=== PATIENT | female | born 1985 | race Caucasian/White ===

== ENCOUNTER 2016-12-26 09:01 | Emergency (ER) | payer OTHER ==
[~2016-12-26] VITALS: Ht 152.4 cm; Wt 90.0 kg
[~2016-12-26 09:01] MED LIST: FLUO20TA20 PO; GABA300C3 PO; SERO200T PO; TRAZ50TA4 PO
[2016-12-26 09:02] VITALS: BP 142/91; PULSE 114; RESP 18; TEMP 98; O2SAT 98
[2016-12-26 10:27] LABS: AUTOMATED NEUTROPHIL # 11.6 TH/MM3 (1.8-7.7); BASOPHIL # 0.1 TH/MM3 (0-0.2); BASOPHIL % 0.5 % (0.0-2.0); EOSINOPHIL # 0.1 TH/MM3 (0-0.4); EOSINOPHIL % 0.3 % (0.0-4.0); HEMATOCRIT 38.4 % (35.0-46.0); HEMO FLAGS DIFF FINAL; LYMPH % 17.7 % (9.0-44.0); LYMPHOCYTE # 2.7 TH/MM3 (1.0-4.8); MEAN CELL VOLUME 91.7 FL (80.0-100.0); MEAN CORPUSCULAR HEMOGLOBIN 31.3 PG (27.0-34.0); MEAN CORPUSCULAR HGB CONC 34.2 % (32.0-36.0); MONO % 4.4 % (0.0-8.0); NEUT % 77.1 % (16.0-70.0); PLATELET COUNT 301 TH/MM3 (150-450); RED BLOOD COUNT 4.18 MIL/MM3 (4.00-5.30); RED CELL DISTRIBUTION WIDTH 13.5 % (11.6-17.2); WHITE BLOOD COUNT 15.1 TH/MM3 (4.0-11.0)
[2016-12-26] MEDS ORDERED: LORazepam 1 MG TAB PO ONE (10:45)
[2016-12-26 10:49] LABS: ALT (GPT) 33 U/L (10-53); ANION GAP 13 MEQ/L (5-15); AST (GOT) 18 U/L (15-37); BICARBONATE 23.3 MEQ/L (21.0-32.0); BLOOD UREA NITROGEN 8 MG/DL (7-18); CHLORIDE 101 MEQ/L (98-107); GLOMERULAR FILTRATION RATE 71 ML/MIN (>89); POTASSIUM 3.6 MEQ/L (3.5-5.1); SODIUM (NA) 137 MEQ/L (136-145)
[2016-12-26 10:51] LABS: ALKALINE PHOSPHATASE 90 U/L (45-117); TOTAL BILIRUBIN ADULT 0.4 MG/DL (0.2-1.0)
[2016-12-26 11:05] LABS: AMPHETAMINE, URINE POS (NEG); BARBITURATES, URINE NEG (NEG); COCAINE, URINE POS (NEG)
--- NOTE | 2016-12-26 11:14 | PD ---
HPI Chief Complaint: Psychiatric Symptoms Time Seen by Provider: 09:46 Travel History International Travel<30 days: No Contact w/Intl Traveler<30days: No Traveled to known affect area: No History of Present Illness HPI Set 31-year-old woman presents to the emergency department complaining of suicidality. She states that she left detox yesterday after being there 5 days for IV polysubstance abuse with her when cocaine and methamphetamine. She states she used yesterday after getting out. Should she had a negative detox because she required 2 to go back to her sober living house. She is now homeless. She states that she is going to kill her self. She denies any recent illness or injury. No other complaints. History Past Medical History Narrative Medical Active IV drug use Tetanus Vaccination: < 5 Years Influenza Vaccination: No LMP: 12/2016 Social History Alcohol Use: No Tobacco Use: Yes (1 PPD) Allergies-Medications (Allergen,Severity, Reaction): Coded Allergies: Effexor (Verified Allergy, Severe, 12/26/16) Reported Meds & Prescriptions Reported Meds & Active Scripts Active Review of Systems Except as stated in HPI: all other systems reviewed are Neg Physical Exam Narrative GENERAL: 31-year-old woman, tearful, nontoxic. SKIN: Focused skin assessment warm/dry. HEAD: Atraumatic. Normocephalic. EYES: Pupils equal and round. No scleral icterus. No injection or drainage. ENT: No nasal bleeding or discharge. Mucous membranes pink and moist. NECK: Trachea midline. No JVD. CARDIOVASCULAR: Regular rate and rhythm. No murmur appreciated. RESPIRATORY: No accessory muscle use. Clear to auscultation. Breath sounds equal bilaterally. GASTROINTESTINAL: Abdomen soft, non-tender, nondistended. Hepatic and splenic margins not palpable. MUSCULOSKELETAL: No obvious deformities. No edema. NEUROLOGICAL: Awake and alert. No obvious cranial nerve deficits. Motor grossly within normal limits. Normal speech. PSYCHIATRIC: Tearful and sad. Expressing SI. Data Data Last Documented VS Vital Signs Date Time Temp Pulse Resp B/P Pulse Ox O2 Delivery O2 Flow Rate FiO2 12/26/16 09:02 98.0 114 18 142/91 98 Orders Complete Blood Count With Diff (12/26/16 09:24) Comprehensive Metabolic Panel (12/26/16 09:24) Ed Urine Pregnancytest Poc (12/26/16 09:24) Psych Screen (12/26/16 09:24) Drug Screen, Random Urine (12/26/16 09:24) Lorazepam (Ativan) (12/26/16 10:45) Diet Regular Basic (12/26/16 Lunch) Labs Laboratory Tests Test 12/26/16 10:10 White Blood Count 15.1 TH/MM3 Red Blood Count 4.18 MIL/MM3 Hemoglobin 13.1 GM/DL Hematocrit 38.4 % Mean Corpuscular Volume 91.7 FL Mean Corpuscular Hemoglobin 31.3 PG Mean Corpuscular Hemoglobin 34.2 % Concent Red Cell Distribution Width 13.5 % Platelet Count 301 TH/MM3 Mean Platelet Volume 8.8 FL Neutrophils (%) (Auto) 77.1 % Lymphocytes (%) (Auto) 17.7 % Monocytes (%) (Auto) 4.4 % Eosinophils (%) (Auto) 0.3 % Basophils (%) (Auto) 0.5 % Neutrophils # (Auto) 11.6 TH/MM3 Lymphocytes # (Auto) 2.7 TH/MM3 Monocytes # (Auto) 0.7 TH/MM3 Eosinophils # (Auto) 0.1 TH/MM3 Basophils # (Auto) 0.1 TH/MM3 CBC Comment DIFF FINAL Differential Comment Sodium Level 137 MEQ/L Potassium Level 3.6 MEQ/L Chloride Level 101 MEQ/L Carbon Dioxide Level 23.3 MEQ/L Anion Gap 13 MEQ/L Blood Urea Nitrogen 8 MG/DL Creatinine 0.93 MG/DL Estimat Glomerular Filtration 71 ML/MIN Rate Random Glucose 85 MG/DL Calcium Level 9.1 MG/DL Total Bilirubin 0.4 MG/DL Aspartate Amino Transf 18 U/L (AST/SGOT) Alanine Aminotransferase 33 U/L (ALT/SGPT) Alkaline Phosphatase 90 U/L Total Protein 8.4 GM/DL Albumin 3.6 GM/DL [facility] Medical Decision Making Medical Screen Exam Complete: Yes Emergency Medical Condition: Yes Interpretation(s) LABS: CBC remarkable for mild leukocytosis. CMP unremarkable. Point of care hCG negative Differential Diagnosis Adjustment reaction, substance induced mood disorder, depression, malingering, other Narrative Course Medical decision making 31-year-old woman presents to the emergency department complaining of suicidality in the setting of active IV drug use and was passing. She looks otherwise well. No somatic complaints. Patient's medically clear for psychiatric evaluation. Deshawn Bergeron MD Dec 26, 2016 11:13
--- NOTE | 2016-12-26 15:13 | PD ---
History of Present Illness Chief Complaint: Psychiatric Symptoms Time Seen by Provider: 14:15 Travel History International Travel<30 Days: No Contact w/Intl Traveler<30days: No Known affected area: No Legal Status Legal Status: Dietrich Act Dietrich Act Signed By: History of Present Illness: This is a 31-year-old female who is here under a Dietrich act for threatening to kill herself. Patient was recently released from detox, yesterday and immediately went out and began using alcohol and drugs. She states she wanted to get into the sober living house but now must return to detox in order to get in there. She reports being "tired of this shift" and does not wish to go back to detox. She repeatedly threatens to kill herself if this physician does not admit her to the hospital. This physician feels it is counter therapeutic to given to the patient's manipulations, despite the possibility that she may act out in a dangerous and self-injurious way. This physician feels the patient should return to detox so that she can get into the sober living house. Patient was informed of this recommendation. This physician acknowledges the patient may continue to act out if she is not given her way. This acting out may be dangerous to self or others. However the patient is a competent adult and capable of making appropriate decisions. PFSH Past Medical History Bipolar Disorder: Yes Anxiety: Yes Depression: Yes Diminished Hearing: No Psychiatric: Yes (SUICIDAL IDEATION ) Immunizations Current: No Tetanus Vaccination: < 5 Years Influenza Vaccination: No ?: Not LMP: 12/2016 Past Surgical History Cholecystectomy: Yes Other Surgery: Yes (LEFT OOPHORECTOMY) Psychiatric History Psychiatric History Hx Psychiatric Treatment: CURRENLY BEING TREATED FOR DEPRESSION BY NISREEN HAYDEN AT [facility]. The patient is treatment Bipolar depression. She is treated with Prozac, Seroquel, Trazodone, Neurontin, and Metformin. Has tried to kill self by OD and cut wrists. History of Inpatient Treatment: Yes Social History Hx Alcohol Use: No Hx Tobacco Use: Yes (1 PPD) Hx Substance Use: Yes (metamphenamine, coccaine, heroine) Substance Use Type: Alcohol, Cocaine Other Substances Used: SOBER FROM DRUGS FOR 78 DAYS. Says that she has used every drug. Hx of Substance Use Treatment: Yes Allergies-Medications (Allergen,Severity, Reaction): Coded Allergies: Effexor (Verified Allergy, Severe, 12/26/16) Reported Meds & Prescriptions Reported Meds & Active Scripts Active Review of Systems ROS Limitations: Clinical Condition Exam Exam Limitations: Clinical Condition Alert: Yes [place]: Person, Place, Date, Situation Mood: Angry Affect: Other Speech: Clear Eye Contact: Indirect Memory Intact: Immediate, Recent, Remote Suicidal: Ideation Insight/Judgement Adequate except when it comes to drug and alcohol abuse MDM Medical Decision Making Medical Record Reviewed: Yes Assessment/Plan Patient's Dietrich act is being lifted and she is being discharged. She was encouraged to return to the [facility] detox house and then to sober living house. This physician feels it is inappropriate to give it to the patient's manipulations, despite the risk of her acting out and causing her self-harm. Orders Complete Blood Count With Diff (12/26/16 09:24) Comprehensive Metabolic Panel (12/26/16 09:24) Ed Urine Pregnancytest Poc (12/26/16 09:24) Psych Screen (12/26/16 09:24) Drug Screen, Random Urine (12/26/16 09:24) Lorazepam (Ativan) (12/26/16 10:45) Diet Regular Basic (12/26/16 Lunch) Results Vital Signs Date Time Temp Pulse Resp B/P Pulse Ox O2 Delivery O2 Flow Rate FiO2 12/26/16 09:02 98.0 114 18 142/91 98 Laboratory Tests Test 12/26/16 12/26/16 10:05 10:10 Urine Opiates Screen NEG Urine Barbiturates Screen NEG Urine Amphetamines Screen POS Urine Benzodiazepines Screen POS Urine Cocaine Screen POS Urine Cannabinoids Screen NEG White Blood Count 15.1 Red Blood Count 4.18 Hemoglobin 13.1 Hematocrit 38.4 Mean Corpuscular Volume 91.7 Mean Corpuscular Hemoglobin 31.3 Mean Corpuscular Hemoglobin 34.2 Concent Red Cell Distribution Width 13.5 Platelet Count 301 Mean Platelet Volume 8.8 Neutrophils (%) (Auto) 77.1 Lymphocytes (%) (Auto) 17.7 Monocytes (%) (Auto) 4.4 Eosinophils (%) (Auto) 0.3 Basophils (%) (Auto) 0.5 Neutrophils # (Auto) 11.6 Lymphocytes # (Auto) 2.7 Monocytes # (Auto) 0.7 Eosinophils # (Auto) 0.1 Basophils # (Auto) 0.1 CBC Comment DIFF FINAL Differential Comment Sodium Level 137 Potassium Level 3.6 Chloride Level 101 Carbon Dioxide Level 23.3 Anion Gap 13 Blood Urea Nitrogen 8 Creatinine 0.93 Estimat Glomerular Filtration 71 Rate Random Glucose 85 Calcium Level 9.1 Total Bilirubin 0.4 Aspartate Amino Transf 18 (AST/SGOT) Alanine Aminotransferase 33 (ALT/SGPT) Alkaline Phosphatase 90 Total Protein 8.4 Albumin 3.6 Diagnosis Primary Impression: Drug-induced mood disorder Departure Forms: Tests/Procedures Patient Instructions: General Instructions Disposition: 01 DISCHARGE HOME Condition: Stable Joe Appiah MD Dec 26, 2016 15:13
== END 2016-12-26 14:37 | disposition home or self-care (01) ==
LOC: NEPD 09:01 → NEPB 14:37
DX: F15.14 Other stimulant abuse with stimulant-induced mood disorder (principal); F14.90 Cocaine use, unspecified, uncomplicated; F13.14 Sedative, hypnotic or anxiolytic abuse with sedative, hypnotic or anxiolytic-induced mood disorder; F17.210 Nicotine dependence, cigarettes, uncomplicated; F31.9 Bipolar disorder, unspecified
CPT/HCPCS: 80053; 80307; 84703; 85025; 99284

== ENCOUNTER 2017-01-01 10:56 | Emergency (ER) | payer OTHER ==
[~2017-01-01] VITALS: Ht 152.4 cm; Wt 86.0 kg
[2017-01-01 11:15] VITALS: BP 140/82; PULSE 73; RESP 18; TEMP 98.9; O2SAT 97
--- NOTE | 2017-01-01 11:27 | PD ---
HPI Chief Complaint: Psychiatric Symptoms Time Seen by Provider: 11:21 Travel History International Travel<30 days: No Contact w/Intl Traveler<30days: No Traveled to known affect area: No History of Present Illness HPI 31-year-old female is brought to the emergency department under Dietrich act for suicidal ideations. Per the Dietrich act documentation the patient attempted to kill herself by cutting her left forearm with a razor blade. There was a suicide note found next to her at her home stating that she did not want to live anymore. The police were called by friends who checked on the patient and found her with a suicide note and then placed her under Dietrich act. The patient is currently agitated and uncooperative. She is stating that she did not cut herself that this "was an accident" and she does not recall exactly how it happened. She is denying suicidal or homicidal ideations. She denies any medical complaints. Denies any numbness or tingling, weakness, fever, chills, nausea, vomiting, chest pain, shortness of breath, abdominal pain. No other complaints. PFSH Past Medical History Bipolar Disorder: Yes Anxiety: Yes Depression: Yes Diminished Hearing: No Psychiatric: Yes (SUICIDAL IDEATION ) Immunizations Current: No Past Surgical History Cholecystectomy: Yes Other Surgery: Yes (LEFT OOPHORECTOMY) Social History Alcohol Use: No Tobacco Use: Yes (1 PPD) Substance Use: Yes (metamphenamine, coccaine, heroine) Allergies-Medications (Allergen,Severity, Reaction): Coded Allergies: Effexor (Verified Allergy, Severe, 01/01/17) Reported Meds & Prescriptions Reported Meds & Active Scripts Active Review of Systems Except as stated in HPI: all other systems reviewed are Neg Physical Exam Narrative GENERAL: Well-nourished and well-developed pleasant patient in no acute distress who is nontoxic appearing. SKIN: Warm and dry. 8 cm linear laceration to the volar aspect of left forearm , whitest in the center of the laceration about a centimeter wide. This is not deep, I'm able to see a bloodless view of the base of the laceration and there is no foreign body visualized. HEAD: Normocephalic and atraumatic. EYES: No injection, drainage, or hyphema noted. PERRLA. EOMI. ENT: No nasal drainage noted. Oropharynx is clear. NECK: Supple and the trachea is midline. CARDIOVASCULAR: Regular rate and rhythm. RESPIRATORY: Breath sounds are equal bilaterally with no accessory muscle use, wheezing, rhonchi, or crackles. GASTROINTESTINAL: Abdomen is soft, non-tender, and nondistended. MUSCULOSKELETAL: No obvious deformities, swelling, cyanosis, or ecchymosis is present throughout the upper and lower extremities. Patient has full range of motion without any signs of neurovascular compromise. NEUROLOGICAL: Awake, alert, and oriented. Normal speech and gait. Cranial nerves are grossly intact. Data Data Last Documented VS Vital Signs Date Time Temp Pulse Resp B/P Pulse Ox O2 Delivery O2 Flow Rate FiO2 01/01/17 11:18 73 01/01/17 11:15 98.9 18 140/82 97 Orders Complete Blood Count With Diff (01/01/17 11:16) Comprehensive Metabolic Panel (01/01/17 11:16) Ed Urine Pregnancytest Poc (01/01/17 11:16) Psych Screen (01/01/17 11:16) Drug Screen, Random Urine (01/01/17 11:16) Alcohol (Ethanol) (01/01/17 11:16) Salicylates (Aspirin) (01/01/17 11:16) Tylenol (Acetaminophen) (01/01/17 11:16) Lidocai-Epi 1%-1:100,000 Inj (Xylocaine- (01/01/17 11:30) Labs Laboratory Tests Test 01/01/17 12:45 White Blood Count 10.1 TH/MM3 Red Blood Count 3.74 MIL/MM3 Hemoglobin 11.3 GM/DL Hematocrit 34.3 % Mean Corpuscular Volume 91.9 FL Mean Corpuscular Hemoglobin 30.4 PG Mean Corpuscular Hemoglobin 33.0 % Concent Red Cell Distribution Width 13.5 % Platelet Count 234 TH/MM3 Mean Platelet Volume 9.0 FL Neutrophils (%) (Auto) 60.9 % Lymphocytes (%) (Auto) 30.1 % Monocytes (%) (Auto) 6.8 % Eosinophils (%) (Auto) 1.5 % Basophils (%) (Auto) 0.7 % Neutrophils # (Auto) 6.1 TH/MM3 Lymphocytes # (Auto) 3.0 TH/MM3 Monocytes # (Auto) 0.7 TH/MM3 Eosinophils # (Auto) 0.1 TH/MM3 Basophils # (Auto) 0.1 TH/MM3 CBC Comment DIFF FINAL Differential Comment Sodium Level 139 MEQ/L Potassium Level 3.7 MEQ/L Chloride Level 107 MEQ/L Carbon Dioxide Level 25.2 MEQ/L Anion Gap 7 MEQ/L Blood Urea Nitrogen 7 MG/DL Creatinine 0.81 MG/DL Estimat Glomerular Filtration 83 ML/MIN Rate Random Glucose 109 MG/DL Calcium Level 8.6 MG/DL Total Bilirubin 0.7 MG/DL Aspartate Amino Transf 82 U/L (AST/SGOT) Alanine Aminotransferase 130 U/L (ALT/SGPT) Alkaline Phosphatase 124 U/L Total Protein 7.2 GM/DL Albumin 3.2 GM/DL Salicylates Level LESS THAN 1.7 MG/DL Acetaminophen Level LESS THAN 2.0 MCG/ML Ethyl Alcohol Level LESS THAN 3 MG/DL MDM Medical Decision Making Medical Screen Exam Complete: Yes Emergency Medical Condition: Yes Differential Diagnosis Differential: Depression versus adjustment reaction versus anxiety versus PTSD versus psychosis NOS versus mood disorder NOS versus substance induced mood disorder versus ODD versus adjustment reaction versus schizophrenia versus bipolar disorder versus schizoaffective versus electrolyte abnormality Narrative Course Patient presents under a Dietrich act for attempting to kill herself by lacerating her left forearm. She does have a laceration to the left forearm that is superficial however will require suture repair. Left upper extremity is neurovascularly intact. She is reporting her tetanus vaccination is up-to- date. Vital signs are within normal limits. Psych screen has been ordered. CBC shows mild anemia with a hemoglobin of 11.3, hematocrit 34.3. CMP shows elevated LFTs, likely secondary to substance abuse, patient has no abdominal pain. Tylenol and salicylate levels are within normal limits. EtOH is less than 3. The patient is medically cleared for psychiatric evaluation and disposition. Procedures Procedure Narrative LACERATION LOCATION: Left forearm volar aspect LENGTH: 10 cm NUMBER OF STITCHES/EDWARDO: 19 sutures REPAIR: The area of the laceration was prepped with Betadine and sterilely draped. The laceration was infiltrated with 1% lidocaine with epinephrine. The wound was copiously irrigated and explored without evidence of foreign body , tendon injury or neurovascular injury. The wound was closed using 4. 0 Ethilon. This was a single layer repair. Antibiotic ointment and a sterile dressing was applied. The patient was advised to keep the dressing clean and dry. Patient tolerated the procedure well. Diagnosis Primary Impression: Self-inflicted laceration of wrist Qualified Code: S61.512A - Self-inflicted laceration of wrist, left, initial encounter Additional Impression: Suicidal behavior Qualified Code: T14.91 - Suicidal behavior with attempted self-injury Additional Instructions: Keep wound clean and dry. Wash gently with soap and water. Apply topical antibiotic ointment twice daily. Have sutures removed in 7 days. Follow-up with your Primary Care Physician. Return to the ED for any acute worsening of symptoms. Ana Maria Forrester Jan 01, 2017 11:27
[2017-01-01] MEDS ORDERED: LIDOCAINE 1%/EPINEPHrine 1:100,000 SOLN 20 ML VIAL INFIL ONE (11:30)
[2017-01-01 13:17] LABS: AUTOMATED NEUTROPHIL # 6.1 TH/MM3 (1.8-7.7); BASOPHIL # 0.1 TH/MM3 (0-0.2); BASOPHIL % 0.7 % (0.0-2.0); EOSINOPHIL # 0.1 TH/MM3 (0-0.4); EOSINOPHIL % 1.5 % (0.0-4.0); HEMATOCRIT 34.3 % (35.0-46.0); HEMO FLAGS DIFF FINAL; LYMPH % 30.1 % (9.0-44.0); MEAN CELL VOLUME 91.9 FL (80.0-100.0); MEAN CORPUSCULAR HEMOGLOBIN 30.4 PG (27.0-34.0); MONO % 6.8 % (0.0-8.0); NEUT % 60.9 % (16.0-70.0); PLATELET COUNT 234 TH/MM3 (150-450); RED BLOOD COUNT 3.74 MIL/MM3 (4.00-5.30); RED CELL DISTRIBUTION WIDTH 13.5 % (11.6-17.2); WHITE BLOOD COUNT 10.1 TH/MM3 (4.0-11.0)
[2017-01-01 13:21] LABS: ALT (GPT) 130 U/L (10-53); ANION GAP 7 MEQ/L (5-15); AST (GOT) 82 U/L (15-37); BICARBONATE 25.2 MEQ/L (21.0-32.0); BLOOD UREA NITROGEN 7 MG/DL (7-18); CHLORIDE 107 MEQ/L (98-107); GLOMERULAR FILTRATION RATE 83 ML/MIN (>89); POTASSIUM 3.7 MEQ/L (3.5-5.1); SODIUM (NA) 139 MEQ/L (136-145)
[2017-01-01 13:23] LABS: ACETAMINOPHEN LESS THAN 2.0 MCG/ML (10.0-30.0); ALKALINE PHOSPHATASE 124 U/L (45-117); TOTAL BILIRUBIN ADULT 0.7 MG/DL (0.2-1.0)
[2017-01-01 14:25] VITALS: BP 147/78; PULSE 86; RESP 18; TEMP 98.5; O2SAT 100
[2017-01-01 16:32] LABS: AMPHETAMINE, URINE POS (NEG); BARBITURATES, URINE NEG (NEG); COCAINE, URINE POS (NEG)
[2017-01-01 22:31] VITALS: BP 129/65; PULSE 73; RESP 16; O2SAT 99
[2017-01-02 02:07] VITALS: BP 102/66; PULSE 71; RESP 18
[2017-01-02 06:10] VITALS: BP 128/61; PULSE 75; RESP 18
[2017-01-02] MEDS ORDERED: LORazepam 2 MG TAB PO PRN (08:30)
[2017-01-02] MEDS ORDERED: LORazepam 2 MG/ML VIAL IV PUSH PRN ×4 (08:30)
[2017-01-02] MEDS ORDERED: LORazepam 1 MG TAB PO PRN (08:30)
[2017-01-02] MEDS ORDERED: FLUMAZENIL 0.5 MG/5 ML VIAL IV PUSH PRN (08:30)
[2017-01-02 10:44] VITALS: BP 140/73; PULSE 89; RESP 18; O2SAT 96
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
== END 2017-01-02 16:14 ==
LOC: NEPD 10:56 → NEPJ 01-02 16:14
DX: S61.512A Laceration without foreign body of left wrist, initial encounter (principal); T14.91 Suicide attempt; F43.25 Adjustment disorder with mixed disturbance of emotions and conduct; X78.8XXA Intentional self-harm by other sharp object, initial encounter; Y92.009 Unspecified place in unspecified non-institutional (private) residence as the place of occurrence of the external cause; F17.210 Nicotine dependence, cigarettes, uncomplicated; F19.10 Other psychoactive substance abuse, uncomplicated; F15.90 Other stimulant use, unspecified, uncomplicated; F14.90 Cocaine use, unspecified, uncomplicated; F11.90 Opioid use, unspecified, uncomplicated; Z59.0 Homelessness
CPT/HCPCS: 12004; 80053; 80307; 84703; 85025

== ENCOUNTER 2017-08-30 12:44 | Emergency (ER) | payer OTHER ==
[~2017-08-30] VITALS: Ht 152.4 cm; Wt 81.5 kg
[2017-08-30 12:52] VITALS: BP 141/86; PULSE 109; RESP 19; TEMP 99.1; O2SAT 98
[2017-08-30 12:56] VITALS: BP 141/86; PULSE 105; RESP 20; TEMP 99.1; O2SAT 100
[2017-08-30] MEDS ORDERED: GABA300C5 PO (12:58)
[2017-08-30] MEDS ORDERED: TRAZ100T10 PO (12:58)
[2017-08-30] MEDS ORDERED: WELLTAB39 PO (12:58)
[2017-08-30] MEDS ORDERED: SODIUM CHLOR 0.9% 1000 ML INJ 1,000 ML IV ONE (13:02)
[2017-08-30 13:07] VITALS: BP 140/92; PULSE 105; RESP 19; TEMP 99.1; O2SAT 100
[2017-08-30] MEDS ORDERED: SODIUM CHLORIDE 0.9% FLUSH 10 ML FLUSH IVF PRN (13:15)
--- NOTE | 2017-08-30 14:43 | RADRPT ---
EXAM DATE/TIME: 08/30/2017 14:06 [facility] COMPARISON: No previous studies available for comparison. INDICATIONS : Seizure today,headach weakness. RADIATION DOSE: 56.35 CTDIvol (mGy) MEDICAL HISTORY : None SURGICAL HISTORY : Cholecystectomy. LT oophorectomy ENCOUNTER: Initial ACUITY: 2 days PAIN SCALE: 5/10 LOCATION: cranial TECHNIQUE: Multiple contiguous axial images were obtained of the head. Using automated exposure control and adj ustment of the mA and/or kV according to patient size, radiation dose was kept as low as reasonably a chievable to obtain optimal diagnostic quality images. DICOM format image data is available electro nically for review and comparison. FINDINGS: CEREBRUM: The ventricles are normal for age. No evidence of midline shift, mass lesion, hemorrhage or acute in farction. No extra-axial fluid collections are seen. POSTERIOR FOSSA: The cerebellum and brainstem are intact. The 4th ventricle is midline. The cerebellopontine angle i s unremarkable. EXTRACRANIAL: The visualized portion of the orbits is intact. SKULL: The calvaria is intact. No evidence of skull fracture. CONCLUSION: Normal examination. Abhinav Garner MD on August 30, 2017 at 14:41 Board Certified Radiologist. This report was verified electronically.
--- NOTE | 2017-08-30 14:49 | PD ---
HPI Chief Complaint: Seizure Time Seen by Provider: 12:47 Travel History International Travel<30 days: No Contact w/Intl Traveler<30days: No Traveled to known affect area: No History of Present Illness HPI This is a 32-year-old female with a history of seizure disorder, psychiatric disorder, who presents today after having a seizure while at work. The patient states that she last had a seizure in January of last year. She states she is on Wellbutrin and has been told that this can lower the seizure threshold. She states that she has no point with her psychiatrist tomorrow to take her off the Wellbutrin. She reports mild frontal headache. She denies any toxic ingestion. She is currently not taking any seizure medications at this time. She denies any tongue biting. She denies any urinary continence. There are no other complaints time my examination. PFSH Past Medical History Bipolar Disorder: Yes Anxiety: Yes Depression: Yes Diminished Hearing: No Psychiatric: Yes (SUICIDAL IDEATION ) Reproductive: Yes (PCOS) Immunizations Current: No Influenza Vaccination: No ?: Not LMP: 08/18/17 Past Surgical History Cholecystectomy: Yes Other Surgery: Yes (LEFT OOPHORECTOMY) Social History Alcohol Use: No Tobacco Use: No Substance Use: No ( cocaine, heroin) Allergies-Medications (Allergen,Severity, Reaction): Coded Allergies: venlafaxine (Unverified Allergy, Severe, 08/30/17) egg (Verified Allergy, Unknown, 08/30/17) shellfish derived (Verified Allergy, Unknown, 08/30/17) Reported Meds & Prescriptions Reported Meds & Active Scripts Active Reported Wellbutrin Xl 24 HR (Bupropion HCl) 300 Mg Tab 300 Mg PO DAILY Trazodone (Trazodone HCl) 100 Mg Tablet 100 Mg PO HS Gabapentin 300 Mg Cap 300 Mg PO TID Review of Systems Except as stated in HPI: all other systems reviewed are Neg General / Constitutional: No: Fever, Chills Eyes: No: Blurred Vision, Photophobia HENT: Positive: Headaches, No: Lightheadedness (mild bifrontal), Neck Pain Cardiovascular: No: Chest Pain or Discomfort, Palpitations Respiratory: No: Cough, Shortness of Breath Gastrointestinal: No: Nausea, Vomiting Genitourinary: No: Incontinence Musculoskeletal: No: Weakness, Pain Neurologic: Positive: Seizures, No: Weakness, Headache Psychiatric: No: Suicidal Ideations, Substance Abuse, Homicidal Ideation Physical Exam Narrative GENERAL: Well developed well-nourished female in no acute distress. SKIN: Focused skin assessment warm/dry. HEAD: Atraumatic. Normocephalic. EYES: Pupils equal and round. No scleral icterus. No injection or drainage. ENT: No nasal bleeding or discharge. Mucous membranes pink and moist. NECK: Trachea midline. Supple. CARDIOVASCULAR: Regular rate and rhythm. No murmur appreciated. RESPIRATORY: No accessory muscle use. Clear to auscultation. Breath sounds equal bilaterally. GASTROINTESTINAL: Abdomen soft, non-tender, nondistended. MUSCULOSKELETAL: No obvious deformities. No clubbing. No cyanosis. No edema. NEUROLOGICAL: Awake and alert. No obvious cranial nerve deficits. Motor grossly within normal limits. Normal speech. Data Data Last Documented VS Vital Signs Date Time Temp Pulse Resp B/P (MAP) Pulse Ox O2 Delivery O2 Flow Rate FiO2 08/30/17 17:12 80 17 122/80 (94) 100 Room Air 08/30/17 13:07 99.1 Orders Orders Basic Metabolic Panel (Bmp) (08/30/17 13:02) Ct Brain W/O Iv Contrast(Rout) (08/30/17 ) Blood Glucose (08/30/17 13:02) Ecg Monitoring (08/30/17 13:02) Iv Access Insert/Monitor (08/30/17 13:02) Oximetry (08/30/17 13:02) Sodium Chlor 0.9% 1000 Ml Inj (Ns 1000 M (08/30/17 13:02) Sodium Chloride 0.9% Flush (Ns Flush) (08/30/17 13:15) Ketorolac Inj (Toradol Inj) (08/30/17 17:00) Mandatory Outpatient Referral (08/30/17 16:59) Labs Laboratory Tests Test 08/30/17 15:42 Blood Urea Nitrogen 5 MG/DL Creatinine 0.90 MG/DL Random Glucose 100 MG/DL Calcium Level 8.3 MG/DL Sodium Level 140 MEQ/L Potassium Level 3.7 MEQ/L Chloride Level 108 MEQ/L Carbon Dioxide Level 25.7 MEQ/L Anion Gap 6 MEQ/L Estimat Glomerular Filtration Rate 73 ML/MIN MDM Medical Decision Making Medical Screen Exam Complete: Yes Emergency Medical Condition: Yes Differential Diagnosis Breakthrough seizure versus metabolic derangement versus intracranial abnormality Narrative Course 32-year-old female history of seizure disorder, presents after having a witnessed seizure. The patient reported mild frontal headache when she arrived. She was awake alert and appropriate. Elect lites are within normal limits. She had a breakthrough seizure in January. She is currently taking Wellbutrin and will have it switched tomorrow when she sees her psychologist. She does not see a neurologist at this time. She is not on any anti-seizure medication. She'll be discharged. There will be a mandatory referral placed for a neurology consult. The patient's instructed to return if she develops any worsening headache, unsteady gait, or any other reason the concerns her. She has been given one dose of Toradol prior to discharge. Diagnosis Primary Impression: breakthrough seizure Additional Impression: History of adjustment disorder Additional Instructions: A mandatory referral for a neurology consult will be placed. He should receive a call within the next few days from a nurse Savannah Greene appointment. Disposition: 01 DISCHARGE HOME Condition: Stable Ruben Bryant MD Aug 30, 2017 14:49
[2017-08-30 15:07] VITALS: BP 133/94; PULSE 96; RESP 17; O2SAT 99
[2017-08-30 16:26] LABS: BICARBONATE 25.7 MEQ/L (21.0-32.0); CALCIUM 8.3 MG/DL (8.5-10.1); CREATININE 0.9 MG/DL (0.50-1.00)
[2017-08-30] MEDS ORDERED: KETOROLAC TROMETHAMINE 30 MG/ML (IVP) VIAL IV PUSH ONE (17:00)
[2017-08-30 17:12] VITALS: BP 122/80; PULSE 80; RESP 17; O2SAT 100
[2017-08-30 17:48] VITALS: BP 122/80
== END 2017-08-30 18:05 | disposition home or self-care (01) ==
LOC: NEPC 12:44
DX: G40.909 Epilepsy, unspecified, not intractable, without status epilepticus (principal); F31.9 Bipolar disorder, unspecified; F43.22 Adjustment disorder with anxiety
CPT/HCPCS: 70450; 80048; 96361; 96374; 99285; J1885; J7030

== ENCOUNTER 2017-09-04 12:41 | Emergency (ER) | payer OTHER ==
[~2017-09-04] VITALS: Ht 152.4 cm; Wt 82.0 kg
[~2017-09-04 12:41] MED LIST changes: -FLUO20TA20 PO; -GABA300C3 PO; +GABA300C5 PO; -SERO200T PO; +TRAZ100T10 PO; -TRAZ50TA4 PO; +WELLTAB39 PO
[2017-09-04 12:45] VITALS: BP 118/77; PULSE 92; RESP 18; TEMP 98.6; O2SAT 100
[2017-09-04] MEDS ORDERED: LIDOCAINE 2%/EPINEPHrine 1:100,000 20ML MDV NERV BLOCK ONE (13:15)
--- NOTE | 2017-09-04 13:33 | PD ---
HPI Chief Complaint: Skin Problem Time Seen by Provider: 13:00 Travel History International Travel<30 days: No Contact w/Intl Traveler<30days: No Traveled to known affect area: No History of Present Illness HPI 32-year-old female presents the emergency department with worsening apparent abscess to the anterior upper chest over the last 2 days. Patient has a history of MRSA. She denies any specific injury to the area. Fever, chills, has had some serous drainage from it. Pain is 8 out of 10. Patient is allergic to bupropion, eggs, shellfish, and venlafaxine. PFSH Past Medical History Bipolar Disorder: Yes Anxiety: Yes Depression: Yes Diminished Hearing: No Psychiatric: Yes (SUICIDAL IDEATION ) Reproductive: Yes (PCOS) Immunizations Current: No ?: Not LMP: 08/18/17 Past Surgical History Cholecystectomy: Yes Other Surgery: Yes (LEFT OOPHORECTOMY) Social History Alcohol Use: No Tobacco Use: No Substance Use: No ( cocaine, heroin) Allergies-Medications (Allergen,Severity, Reaction): Coded Allergies: venlafaxine (Unverified Allergy, Severe, 09/04/17) bupropion (Verified Allergy, Unknown, Seizures, 09/04/17) egg (Verified Allergy, Unknown, 09/04/17) shellfish derived (Verified Allergy, Unknown, 09/04/17) Reported Meds & Prescriptions Reported Meds & Active Scripts Active Bactroban Topical (Mupirocin) 22 Gm Cream 1 Applic TOPICAL BID Bactrim DS (Sulfamethoxazole-Trimethoprim) 800-160 Mg Tab 1 Tab PO BID Reported Wellbutrin Xl 24 HR (Bupropion HCl) 300 Mg Tab 300 Mg PO DAILY Trazodone (Trazodone HCl) 100 Mg Tablet 100 Mg PO HS Gabapentin 300 Mg Cap 300 Mg PO TID Review of Systems Except as stated in HPI: all other systems reviewed are Neg General / Constitutional: No: Fever Eyes: No: Visual changes HENT: No: Headaches Cardiovascular: No: Chest Pain or Discomfort Respiratory: No: Shortness of Breath Gastrointestinal: No: Abdominal Pain Genitourinary: No: Dysuria Musculoskeletal: No: Pain Skin: Positive Lesions (see history present illness.), No Rash Neurologic: No: Weakness Psychiatric: No: Depression Endocrine: No: Polydipsia Hematologic/Lymphatic: No: Easy Bruising Physical Exam Narrative GENERAL: Patient appears in no acute distress. SKIN: Warm and dry. Normal color. Normal turgor. Patient has obvious superficial abscess to the upper anterior central chest with pointing and localized erythema and induration. HEAD: Atraumatic. Normocephalic. EYES: Pupils equal and round. No scleral icterus. No injection or drainage. ENT: No nasal bleeding or discharge. Mucous membranes pink and moist. Pharynx is clear. Airway is patent. NECK: Trachea midline. Supple. CARDIOVASCULAR: Regular rate and rhythm. RESPIRATORY: No accessory muscle use. Clear to auscultation. Breath sounds equal bilaterally. MUSCULOSKELETAL: Extremities without clubbing, cyanosis, or edema. No obvious deformities. NEUROLOGICAL: Awake and alert. No obvious cranial nerve deficits. Motor grossly within normal limits. Five out of 5 muscle strength in the arms and legs. Normal speech. PSYCHIATRIC: Appropriate mood and affect; insight and judgment normal. Data Data Last Documented VS Vital Signs Date Time Temp Pulse Resp B/P (MAP) Pulse Ox O2 Delivery O2 Flow Rate FiO2 09/04/17 12:45 98.6 92 18 118/77 (91) 100 Room Air Orders Orders Lidocai-Epi 2%-1:100,000 Inj (Xylocaine- (09/04/17 13:15) Wound Culture And Gram Stain (09/04/17 13:30) Ed Discharge Order (09/04/17 13:30) MDM Medical Decision Making Medical Screen Exam Complete: Yes Emergency Medical Condition: Yes Differential Diagnosis Cellulitis. Abscess. MRSA. Narrative Course I and D of abscess was performed on the anterior chest. See procedure note. No packing is placed at this time. Wound culture sent to the lab. Patient is treated with Bactrim DS twice a day 7 days. Patient also given Bactroban ointment to be applied twice daily with wound cleansing and dressing changes. Patient take ibuprofen and Tylenol as needed for discomfort. Patient can follow-up as symptoms warrant. Procedures Procedure Narrative After the risks and benefits were discussed the following procedure was performed: INCISION AND DRAINAGE OF ABSCESS: The area was prepped and was sterilely draped. A subcutaneous wheal of 2 % Xylocaine with epinephrine with a total number 3 mL was used to anesthetize the area. The area was properly anesthetized. A number 11 scalpel was used to make a 1-cm incision across the area of the abscess. Cultures were obtained. The abscess was drained an irrigated with normal saline. Quarter inch iodoform packing was placed in the wound. Sterile dressing applied. Patient advised to have packing removed in two days. Diagnosis Primary Impression: Cutaneous abscess of chest wall Referrals: [facility] Patient Instructions: Abscess Incision and Drainage (DC), General Instructions , MRSA (Methicillin-Resistant Staphylococcus Aureus) (ED) Additional Instructions: I and D of abscess was performed on the anterior chest. No packing is placed at this time. Wound culture sent to the lab. Patient is treated with Bactrim DS twice a day 7 days. Patient also given Bactroban ointment to be applied twice daily with wound cleansing and dressing changes. Patient take ibuprofen and Tylenol as needed for discomfort. Patient can follow-up as symptoms warrant. Med/Other Pt SpecificInfo: Prescription(s) given, Wound Care Scripts Mupirocin Topical (Bactroban Topical) 22 Gm Cream 1 APPLIC TOPICAL BID for Mgmt Bacterial Infection, #1 TUBE 0 Refills Prov: Umair Bruner MD 09/04/17 Sulfamethoxazole-Trimethoprim (Bactrim DS) 800-160 Mg Tab 1 TAB PO BID for Infection, #14 TAB 0 Refills Prov: Umair Bruner MD 09/04/17 Disposition: 01 DISCHARGE HOME Condition: Stable Leobardo Ramirez Sep 04, 2017 13:33
[2017-09-04] MEDS ORDERED: MUPI2%T TOPICAL (13:34)
[2017-09-04] MEDS ORDERED: BACT800T5 PO (13:34)
== END 2017-09-04 13:49 | disposition home or self-care (01) ==
LOC: NEPK 12:41
DX: L02.213 Cutaneous abscess of chest wall (principal); A49.02 Methicillin resistant Staphylococcus aureus infection, unspecified site; F31.9 Bipolar disorder, unspecified; F41.9 Anxiety disorder, unspecified; Z79.899 Other long term (current) drug therapy; Z88.8 Allergy status to other drugs, medicaments and biological substances; Z86.14 Personal history of Methicillin resistant Staphylococcus aureus infection
CPT/HCPCS: 10060; 86403; 87070; 87186

== ENCOUNTER 2018-02-23 00:41 | Emergency (ER) | payer OTHER ==
[~2018-02-23] VITALS: Ht 162.6 cm; Wt 75.0 kg
[~2018-02-23 00:41] MED LIST changes: +BACT800T5 PO; +MUPI2%T TOPICAL
[2018-02-23 00:43] VITALS: BP 158/98; PULSE 95; RESP 18
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
[2018-02-23 02:32] VITALS: BP 147/95
== END 2018-02-23 02:34 | disposition home or self-care (01) ==
LOC: PHED 00:41
DX: S01.511A Laceration without foreign body of lip, initial encounter (principal); Y04.2XXA Assault by strike against or bumped into by another person, initial encounter; E28.2 Polycystic ovarian syndrome; F31.9 Bipolar disorder, unspecified; F41.9 Anxiety disorder, unspecified; Z88.8 Allergy status to other drugs, medicaments and biological substances; Z79.899 Other long term (current) drug therapy
CPT/HCPCS: 12013

== ENCOUNTER 2018-02-26 14:33 | Emergency (ER) | payer OTHER ==
[~2018-02-26] VITALS: Ht 152.4 cm; Wt 75.0 kg
[~2018-02-26 14:33] MED LIST changes: -BACT800T5 PO; -MUPI2%T TOPICAL
[2018-02-26 14:40] VITALS: BP 135/66; PULSE 97; RESP 16; TEMP 97.8; O2SAT 100
[2018-02-26] MEDS ORDERED: LAMO100 PO (15:14)
[2018-02-26] MEDS ORDERED: CLIN150C14 PO (15:27)
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
== END 2018-02-26 15:45 | disposition home or self-care (01) ==
LOC: NEPK 14:33
DX: L08.9 Local infection of the skin and subcutaneous tissue, unspecified (principal)
CPT/HCPCS: 99281